=== PATIENT | male | born 1990 | race Caucasian/White ===

== ENCOUNTER 2018-10-20 18:06 | Observation (INO) | payer MEDICAID, OTHER ==
[2018-10-20] MEDS ORDERED: Sodium Chloride 0.9% 1,000 ML IV SCH (20:00)
[2018-10-20] MEDS ORDERED: metroNIDAZOLE/Normal Saline 500 MG in Premix Bag 1 BAG IV ONE (20:31)
[2018-10-20] MEDS ORDERED: cefOXitin 2 GM in Premix Bag 1 BAG IV ONE (20:32)
--- NOTE | 2018-10-20 20:36 | EDM.PDOC ---
ED HPI GENERAL MEDICAL PROBLEM - General Chief Complaint: Abdominal Pain Stated Complaint: RT LOWER ABD PAIN SENT BY JOSHUA Time Seen by Provider: 10/20/18 19:20 Source of Information: Reports: Patient, Family History Limitations: Reports: No Limitations - History of Present Illness INITIAL COMMENTS - FREE TEXT/NARRATIVE: This is a 28-year-old male. Yesterday he was having some generalized abdominal pain periumbilical area. Today the pain seemed to move into the right lower quadrant. He denies any fever. He's had some nausea but no vomiting. He had some diarrhea yesterday but no blood. The stool is harder today. States he's had a recent cough the last 3 or 4 days like a bronchitis with some phlegm and also some sinus congestion. He went to the walk-in clinic and they did a white count on him of that was 17 and so they sent him to the ER for evaluation for possible appendicitis. The patient appears to be fairly comfortable laying in bed but he did state that on his drive to the walk-in clinic and to the hospital the bumps in the road would make him hurt. Right Lower Abdomen Pain Score (Numeric/FACES): 7 - Related Data Allergies Allergy/AdvReac Type Severity Reaction Status Date / Time almond Allergy Severe Anaphylactic Verified 10/20/18 23:33 Shock Home Meds: Home Meds . [No Known Home Meds] 10/20/18 [History] Past Medical History - Past Health History Medical/Surgical History: Denies Medical/Surgical History Social & Family History - Tobacco Use Smoking Status *Q: Never Smoker - Caffeine Use Caffeine Use: Reports: Coffee, Energy Drinks, Soda, Tea - Recreational Drug Use Recreational Drug Type: Reports: Marijuana/Hashish Other Recreational Drug Type: marijuana today ED ROS GENERAL - Review of Systems Review Of Systems: See Below Constitutional: Denies: Fever, Chills HEENT: Reports: Rhinitis Respiratory: Reports: Cough, Sputum Cardiovascular: Reports: No Symptoms Endocrine: Reports: No Symptoms GI/Abdominal: Reports: Abdominal Pain, Diarrhea, Nausea. Denies: Vomiting : Reports: No Symptoms Musculoskeletal: Reports: No Symptoms Skin: Reports: No Symptoms Neurological: Reports: No Symptoms Psychiatric: Reports: No Symptoms Hematologic/Lymphatic: Reports: No Symptoms ED EXAM, GI/ABD - Physical Exam Exam: See Below Exam Limited By: No Limitations General Appearance: Alert, WD/WN, No Apparent Distress Eyes: Bilateral: Normal Appearance Ears: Normal External Exam Nose: Normal Inspection Throat/Mouth: Normal Inspection, Normal Lips, Normal Voice, No Airway Compromise Head: Normocephalic Neck: Supple Respiratory/Chest: No Respiratory Distress, Lungs Clear, Normal Breath Sounds Cardiovascular: Regular Rate, Rhythm, No Murmur GI/Abdominal Exam: Soft, No Distention, Other (The patient has tenderness over McBurney's point in the right lower quadrant, minimal rebound or peritoneal signs but very tender. Bowel sounds are decreased if not absent) Back Exam: Normal Inspection, Full Range of Motion Extremities: Normal Inspection, Normal Range of Motion Neurological: Alert, Oriented Psychiatric: Normal Affect, Normal Mood Skin Exam: Warm, Dry Course - Vital Signs Last Recorded V/S: Last Vital Signs Temp 98.3 F 10/20/18 23:45 Pulse 62 10/21/18 05:17 Resp 9 L 10/21/18 00:02 BP 125/68 10/21/18 05:17 Pulse Ox 95 10/21/18 05:17 - Orders/Labs/Meds Orders: Active Orders 24 hr Category Date Time Status Patient Status [ADT] Stat ADT 10/20/18 23:13 Active Ambulate [RC] ASDIRECTED Care 10/20/18 23:18 Active Cooling Warming Measures [RC] ASDIRECTED Care 10/20/18 22:17 Active Notify Provider [RC] ASDIRECTED Care 10/20/18 22:17 Active Oxygen Therapy [RC] ASDIRECTED Care 10/20/18 22:17 Active Pulse Oximetry [RC] ASDIRECTED Care 10/20/18 22:17 Active Turn, Cough, Deep Breathe [RC] .PRN Care 10/20/18 23:18 Active Verify Patient Consent Obtain [RC] ASDIRECTED Care 10/20/18 20:58 Active Vital Signs [RC] Q15M Care 10/20/18 22:17 Active Clear Liquid Diet [DIET] Diet 10/21/18 Breakfast Active Abdomen Pelvis wo Cont [CT] Stat Exams 10/20/18 19:47 Taken Acetaminophen/HYDROcodone [Cascade 325-5 MG] Med 10/20/18 23:17 Active 1 tab PO Q6H PRN Albuterol [Proventil Neb Soln] Med 10/20/18 22:17 Active 2.5 mg NEB ONETIME PRN HYDROmorphone [Dilaudid] Med 10/20/18 22:17 Active 0.5 mg IVPUSH Q15M PRN HYDROmorphone [Dilaudid] Med 10/20/18 23:16 Active 1 mg IVPUSH Q1H PRN Ketorolac [Toradol] Med 10/21/18 03:30 Active 30 mg IVPUSH Q6H PRN Lactated Ringers [Ringers, Lactated] 1,000 ml Med 10/20/18 23:30 Active IV ASDIRECTED Ondansetron [Zofran] Med 10/20/18 22:17 Active 4 mg IVPUSH ONETIME PRN Phenylephrine [Dimitri-Synephrine] 1 mg Med 10/20/18 22:30 Active Sodium Chloride 0.9% [Normal Saline] 10 ml IV TITRATE cefOXitin [Mefoxin in Dextrose,Iso-Osm 2 GM/50 ML] 2 gm Med 10/21/18 03:00 Active Premix Bag 1 bag IV Q6H diphenhydrAMINE [Benadryl] Med 10/20/18 22:17 Active 25 mg IVPUSH Q6H PRN ePHEDrine [ePHEDrine sulfate] Med 10/20/18 22:17 Active 5 mg IVPUSH ASDIRECTED PRN fentaNYL [Sublimaze] Med 10/20/18 22:17 Active 50 mcg IVPUSH Q5M PRN metroNIDAZOLE/Normal Saline [Flagyl 500 MG in NS 100 ML Med 10/21/18 05:00 Active ] 500 mg Premix Bag 1 bag IV Q8H Schedule Procedure [COMM] Stat Oth 10/20/18 20:49 Ordered Medication Orders Hydrocodone Bitart/Acetaminophen (Cascade 325-5 Mg) 1 tab PO Q6H PRN PRN Reason: Pain Albuterol (Proventil Neb Soln) 2.5 mg NEB ONETIME PRN PRN Reason: Cough Albuterol (Proventil Neb Soln) 2.5 mg NEB Q6HR PRN PRN Reason: Cough Diphenhydramine HCl (Benadryl) 25 mg IVPUSH Q6H PRN PRN Reason: pruritis Ephedrine Sulfate (Ephedrine Sulfate) 5 mg IVPUSH ASDIRECTED PRN PRN Reason: Hypotension Fentanyl (Sublimaze) 50 mcg IVPUSH Q5M PRN PRN Reason: Pain Hydromorphone HCl (Dilaudid) 0.5 mg IVPUSH Q15M PRN PRN Reason: Pain (severe 7-10) Hydromorphone HCl (Dilaudid) 1 mg IVPUSH Q1H PRN PRN Reason: Pain Phenylephrine HCl 1 mg/ Sodium (Chloride) 10.1 mls @ 1 mls/sec IV TITRATE [facility]; Protocol Cefoxitin Sodium 2 gm/ Premix 50 mls @ 100 mls/hr IV Q6H [facility] Last Admin: 10/21/18 02:53 Dose: 100 mls/hr Lactated Ringer's (Ringers, Lactated) 1,000 mls @ 100 mls/hr IV ASDIRECTED [facility] Last Admin: 10/21/18 01:36 Dose: 100 mls/hr Metronidazole 500 mg/ Premix 100 mls @ 100 mls/hr IV Q8H [facility] Last Admin: 10/21/18 04:24 Dose: 100 mls/hr Ketorolac Tromethamine (Toradol) 30 mg IVPUSH Q6H PRN PRN Reason: Pain Stop: 10/25/18 03:31 Ondansetron HCl (Zofran) 4 mg IVPUSH ONETIME PRN PRN Reason: Nausea/Vomiting Labs: Laboratory Tests 10/20/18 10/20/18 Range/Units 19:52 19:52 WBC 15.27 H (4.23-9.07) K/mm3 RBC 5.27 (4.63-6.08) M/mm3 Hgb 15.4 (13.7-17.5) gm/L Hct 44.4 (40.1-51.0) % MCV 84.3 (79.0-92.2) fl MCH 29.2 (25.7-32.2) pg MCHC 34.7 (32.2-35.5) g/dl RDW Std Deviation 42.8 (35.1-43.9) fL Plt Count 211 (163-337) K/mm3 MPV 9.9 (9.4-12.3) fl Neut % (Auto) 76.3 H (34.0-67.9) % Lymph % (Auto) 13.2 L (21.8-53.1) % [place] % (Auto) 10.2 (5.3-12.2) % Eos % (Auto) 0.1 L (0.8-7.0) Baso % (Auto) 0.1 (0.1-1.2) % Neut # (Auto) 11.66 H (1.78-5.38) K/mm3 Lymph # (Auto) 2.01 (1.32-3.57) K/mm3 [place] # (Auto) 1.55 H (0.30-0.82) K/mm3 Eos # (Auto) 0.02 L (0.04-0.54) K/mm3 Baso # (Auto) 0.01 (0.01-0.08) K/mm3 Manual Slide Review Normal smear Sodium 142 (136-145) mEq/L Potassium 3.6 (3.5-5.1) mEq/L Chloride 103 (98-107) mEq/L Carbon Dioxide 24 (21-32) mEq/L Anion Gap 18.6 H (5-15) BUN 13 (7-18) mg/dL Creatinine 1.2 (0.7-1.3) mg/dL Est Cr Clr Drug Dosing 110.51 mL/min Estimated GFR (MDRD) > 60 (>60) mL/min BUN/Creatinine Ratio 10.8 L (14-18) Glucose 112 H (74-106) mg/dL Calcium 9.6 (8.5-10.1) mg/dL Total Bilirubin 0.8 (0.2-1.0) mg/dL AST 20 (15-37) U/L ALT 34 (16-63) U/L Alkaline Phosphatase 62 (46-116) U/L C-Reactive Protein 9.5 H* (<1.0) mg/dL Total Protein 8.9 H (6.4-8.2) g/dl Albumin 3.9 (3.4-5.0) g/dl Globulin 5.0 gm/dL Albumin/Globulin Ratio 0.8 L (1-2) Meds: Medications Generic Name Dose Route Start Last Admin Trade Name Freq PRN Reason Stop Dose Admin Hydrocodone Bitart/Acetaminophen 1 tab 10/20/18 23:17 Cascade 325-5 Mg PO Q6H PRN Pain Albuterol 2.5 mg 10/20/18 22:17 Proventil Neb Soln NEB ONETIME PRN Cough Albuterol 2.5 mg 10/20/18 23:32 Proventil Neb Soln NEB Q6HR PRN Cough Diphenhydramine HCl 25 mg 10/20/18 22:17 Benadryl IVPUSH Q6H PRN pruritis Ephedrine Sulfate 5 mg 10/20/18 22:17 Ephedrine Sulfate IVPUSH ASDIRECTED PRN Hypotension Fentanyl 50 mcg 10/20/18 22:17 Sublimaze IVPUSH Q5M PRN Pain Hydromorphone HCl 0.5 mg 10/20/18 22:17 Dilaudid IVPUSH Q15M PRN Pain (severe 7-10) Hydromorphone HCl 1 mg 10/20/18 23:16 Dilaudid IVPUSH Q1H PRN Pain Phenylephrine HCl 1 mg/ Sodium 10.1 mls @ 1 mls/sec 10/20/18 22:30 Chloride IV TITRATE [facility] Protocol Cefoxitin Sodium 2 gm/ Premix 50 mls @ 100 mls/hr 10/21/18 03:00 10/21/18 02: 53 IV 100 mls/hr Q6H [facility] Administration Lactated Ringer's 1,000 mls @ 100 mls/hr 10/20/18 23:30 10/21/18 01:36 Ringers, Lactated IV 100 mls/hr ASDIRECTED [facility] Administration Metronidazole 500 mg/ Premix 100 mls @ 100 mls/hr 10/21/18 05:00 10/21/18 04: 24 IV 100 mls/hr Q8H [facility] Administration Ketorolac Tromethamine 30 mg 10/21/18 03:30 Toradol IVPUSH 10/25/18 03:31 Q6H PRN Pain Ondansetron HCl 4 mg 10/20/18 22:17 Zofran IVPUSH ONETIME PRN Nausea/Vomiting Discontinued Medications Generic Name Dose Route Start Last Admin Trade Name Freq PRN Reason Stop Dose Admin Albuterol 2.5 mg 10/20/18 21:27 10/20/18 21:42 Proventil Neb Soln NEB 10/20/18 21:28 2.5 mg ONETIME ONE Administration Albuterol 2.5 mg 10/20/18 21:27 10/20/18 21:45 Proventil Neb Soln NEB 10/20/18 21:28 Not Given ONETIME ONE Bupivacaine HCl Confirm 10/20/18 21:04 10/20/18 22:16 Marcaine 0.5% Administered 10/20/18 21:05 10.5 ml Dose Administration 30 ml .ROUTE .STK-MED ONE Dexamethasone Confirm 10/20/18 21:18 Dexamethasone Administered 10/20/18 21:19 Dose 20 mg .ROUTE .STK-MED ONE Fentanyl Confirm 10/20/18 21:19 Sublimaze Administered 10/20/18 21:20 Dose 250 mcg .ROUTE .STK-MED ONE Fentanyl Confirm 10/20/18 22:55 Sublimaze Administered 10/20/18 22:56 Dose 100 mcg .ROUTE .STK-MED ONE Glycopyrrolate Confirm 10/20/18 22:22 Administered 10/20/18 22:23 Dose 1 mg .ROUTE .STK-MED ONE Hydromorphone HCl Confirm 10/20/18 21:18 Dilaudid Administered 10/20/18 21:19 Dose 0.5 mg .ROUTE .STK-MED ONE Hydromorphone HCl Confirm 10/20/18 22:54 Dilaudid Administered 10/20/18 22:55 Dose 0.5 mg .ROUTE .STK-MED ONE Sodium Chloride 1,000 mls @ 125 mls/hr 10/20/18 20:00 10/20/18 20:07 Normal Saline IV 125 mls/hr ASDIRECTED [facility] Administration Metronidazole 500 mg/ Premix 100 mls @ 100 mls/hr 10/20/18 20:31 10/20/18 21: 16 IV 10/20/18 21:30 100 mls/hr ONETIME ONE Administration Cefoxitin Sodium 2 gm/ Premix 50 mls @ 100 mls/hr 10/20/18 20:32 10/20/18 20: 40 IV 10/20/18 21:01 100 mls/hr ONETIME ONE Administration Lactated Ringer's Confirm 10/20/18 21:18 Ringers, Lactated Administered 10/20/18 21:19 Dose 1,000 mls @ as directed .ROUTE .STK-MED ONE Lactated Ringer's Confirm 10/20/18 21:20 Ringers, Lactated Administered 10/20/18 21:21 Dose 1,000 mls @ as directed .ROUTE .STK-MED ONE Ketorolac Tromethamine Confirm 10/20/18 21:18 Toradol Administered 10/20/18 21:19 Dose 30 mg .ROUTE .STK-MED ONE Lidocaine HCl Confirm 10/20/18 21:18 Xylocaine-Mpf 1% Administered 10/20/18 21:19 Dose 6 ml .ROUTE .STK-MED ONE Midazolam HCl Confirm 10/20/18 21:19 Versed 1 Mg/Ml Administered 10/20/18 21:20 Dose 2 mg .ROUTE .STK-MED ONE Neostigmine Methylsulfate Confirm 10/20/18 22:22 Neostigmine Administered 10/20/18 22:23 Dose 5 mg .ROUTE .STK-MED ONE Ondansetron HCl Confirm 10/20/18 21:18 Zofran Administered 10/20/18 21:19 Dose 4 mg .ROUTE .STK-MED ONE Propofol Confirm 10/20/18 21:18 Diprivan 20 Ml Administered 10/20/18 21:19 Dose 200 mg .ROUTE .STK-MED ONE Propofol Confirm 10/20/18 21:59 Diprivan 20 Ml Administered 10/20/18 22:00 Dose 200 mg .ROUTE .STK-MED ONE Rocuronium Shevlin Confirm 10/20/18 21:18 Zemuron Administered 10/20/18 21:19 Dose 50 mg .ROUTE .STK-MED ONE Succinylcholine Chloride Confirm 10/20/18 21:18 Succinylcholine In Ns Pf Administered 10/20/18 21:19 Dose 100 mg .ROUTE .STK-MED ONE - Radiology Interpretation Free Text/Narrative:: CT scan of the abdomen shows a uncomplicated acute appendicitis with no abscess and no perforation. - Re-Assessments/Exams Free Text/Narrative Re-Assessment/Exam: 10/21/18 20:12 I spoke to the patient regarding his white count of 15,000 and his positive CAT scan for acute appendicitis. He last ate last night but his last fluid intake was about 4 PM today. 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 Departure - Departure Time of Disposition: 20:34 Disposition: DC/Tfer to [facility] Condition: Fair Clinical Impression: Acute appendicitis Qualifiers: Acute appendicitis type: with localized peritonitis Appendicitis gangrene presence: without gangrene Appendicitis perforation presence: without perforation Appendicitis abscess presence: without abscess Qualified Code(s): K35.30 - Acute appendicitis with localized peritonitis, without perforation or gangrene - Discharge Information ED Communication - ED Communication Date/Time Date: 10/20/18 Time Called: 20:36 - Discussed Case With (1) Discussed Case With (1): Admitting Provider Person/s Notified (1): Konstantin Yanez (He will see the patient in the ER) - My Orders Last 24 Hours: My Active Orders 10/20/18 19:47 Abdomen Pelvis wo Cont [CT] Stat - Assessment/Plan Last 24 Hours: My Active Orders 10/20/18 19:47 Abdomen Pelvis wo Cont [CT] Stat
[2018-10-20] MEDS ORDERED: Bupivacaine 0.5% 30 ML SDV ONE (21:04)
--- NOTE | 2018-10-20 21:06 | PCM.PREANE ---
Preanesthetic Assessment - Anesthesia/Transfusion/Family Hx Anesthesia History: No Prior Anesthesia Family History of Anesthesia Reaction: No Transfusion History: No Prior Transfusion(s) Intubation History: Unknown - Review of Systems General: No Symptoms (Cold symptoms) Pulmonary: No Symptoms (Marijuana noted today), Cough Cardiovascular: No Symptoms Gastrointestinal: No Symptoms, Abdominal Pain, Constipation, Diarrhea Neurological: No Symptoms (Lower back and feet problems noted per patient) Other: Reports: Anxiety - Physical Assessment NPO Status Date: 10/19/18 NPO Status Time: 18:00 Pulse: 79 O2 Sat by Pulse Oximetry: 95 Respiratory Rate: 20 Blood Pressure: 153/92 Temperature: 36.6 C Vital Signs: Last Vital Signs Temp 36.6 C 10/20/18 19:12 Pulse 79 10/20/18 19:12 Resp 20 10/20/18 19:12 BP 153/92 H 10/20/18 19:12 Pulse Ox 95 10/20/18 19:12 Height: 1.93 m Weight: 108.862 kg ASA Class: 2 Mental Status: Alert & Oriented x3 Airway Class: Mallampati = 2 Dentition: Reports: Normal Dentition, Caries Thyro-Mental Finger Breadths: 3 Mouth Opening Finger Breadths: 3 ROM/Head Extension: Full Lungs: Clear to Auscultation, Normal Respiratory Effort, Wheezing Cardiovascular: Regular Rate, Regular Rhythm, No Murmurs - Lab Values: Laboratory Last Values WBC 15.27 K/mm3 (4.23-9.07) H 10/20/18 19:52 RBC 5.27 M/mm3 (4.63-6.08) 10/20/18 19:52 Hgb 15.4 gm/L (13.7-17.5) 10/20/18 19:52 Hct 44.4 % (40.1-51.0) 10/20/18 19:52 MCV 84.3 fl (79.0-92.2) 10/20/18 19:52 MCH 29.2 pg (25.7-32.2) 10/20/18 19:52 MCHC 34.7 g/dl (32.2-35.5) 10/20/18 19:52 RDW Std Deviation 42.8 fL (35.1-43.9) 10/20/18 19:52 Plt Count 211 K/mm3 (163-337) 10/20/18 19:52 MPV 9.9 fl (9.4-12.3) 10/20/18 19:52 Neut % (Auto) 76.3 % (34.0-67.9) H 10/20/18 19:52 Lymph % (Auto) 13.2 % (21.8-53.1) L 10/20/18 19:52 [place] % (Auto) 10.2 % (5.3-12.2) 10/20/18 19:52 Eos % (Auto) 0.1 (0.8-7.0) L 10/20/18 19:52 Baso % (Auto) 0.1 % (0.1-1.2) 10/20/18 19:52 Neut # (Auto) 11.66 K/mm3 (1.78-5.38) H 10/20/18 19:52 Lymph # (Auto) 2.01 K/mm3 (1.32-3.57) 10/20/18 19:52 [place] # (Auto) 1.55 K/mm3 (0.30-0.82) H 10/20/18 19:52 Eos # (Auto) 0.02 K/mm3 (0.04-0.54) L 10/20/18 19:52 Baso # (Auto) 0.01 K/mm3 (0.01-0.08) 10/20/18 19:52 Manual Slide Review Normal smear 10/20/18 19:52 Labs reviewed and noted and within acceptable ranges to proceed with scheduled procedure. - Allergies Allergies/Adverse Reactions: Allergies Allergy/AdvReac Type Severity Reaction Status Date / Time No Known Allergies Allergy Verified 10/20/18 19:09 - Anesthesia Plan Pre-Op Medication Ordered: None - Acknowledgements Anesthesia Type Planned: General Anesthesia Pt an Appropriate Candidate for the Planned Anesthesia: Yes Alternatives and Risks of Anesthesia Discussed w Pt/Guardian: Yes Pt/Guardian Understands and Agrees with Anesthesia Plan: Yes PreAnesthesia Questionnaire - Past Health History Medical/Surgical History: Denies Medical/Surgical History - SUBSTANCE USE Smoking Status *Q: Never Smoker Recreational Drug Type: Reports: Marijuana/Hashish - HOME MEDS Home Medications: Home Meds . [No Known Home Meds] 10/20/18 [History] - CURRENT (IN HOUSE) MEDS Current Meds: Current Medications Sodium Chloride (Normal Saline) 1,000 mls @ 125 mls/hr IV ASDIRECTED [facility] Last Admin: 10/20/18 20:07 Dose: 125 mls/hr Metronidazole 500 mg/ Premix 100 mls @ 100 mls/hr IV ONETIME ONE Stop: 10/20/18 21:30 Discontinued Medications Cefoxitin Sodium 2 gm/ Premix 50 mls @ 100 mls/hr IV ONETIME ONE Stop: 10/20/18 21:01 Last Admin: 10/20/18 20:40 Dose: 100 mls/hr
[2018-10-20] MEDS ORDERED: Succinylcholine/Normal Saline 100 MG/5 ML Syringe ONE (21:18)
[2018-10-20] MEDS ORDERED: Dexamethasone 4 MG/ML 5 ML MDV ONE (21:18)
[2018-10-20] MEDS ORDERED: Lidocaine 1% PF 2 ML SDV ONE (21:18)
[2018-10-20] MEDS ORDERED: Ketorolac 30 MG/ML SDV ONE (21:18)
[2018-10-20] MEDS ORDERED: Ondansetron 4 MG/2 ML SDV ONE (21:18)
[2018-10-20] MEDS ORDERED: Lactated Ringers 1,000 ML ONE ×2 (21:18→21:20)
[2018-10-20] MEDS ORDERED: HYDROmorphone 0.5 MG/0.5 ML Syringe ONE ×2 (21:18→22:54)
[2018-10-20] MEDS ORDERED: Rocuronium 50 MG/5 ML Vial ONE (21:18)
[2018-10-20] MEDS ORDERED: Propofol 200 MG/20 ML SDV ONE ×2 (21:18→21:59)
[2018-10-20] MEDS ORDERED: Midazolam 1 MG/ML 2 ML SDV ONE (21:19)
[2018-10-20] MEDS ORDERED: fentaNYL 250 MCG/5 ML SDV ONE (21:19)
[2018-10-20] MEDS ORDERED: Albuterol 0.083% 2.5 MG/3 ML Neb Soln NEB ONE ×2 (21:27)
[2018-10-20] MEDS ORDERED: fentaNYL 100 MCG/2 ML SDV IVPUSH PRN (22:17)
[2018-10-20] MEDS ORDERED: diphenhydrAMINE 50 MG/ML SDV IVPUSH PRN (22:17)
[2018-10-20] MEDS ORDERED: ePHEDrine 50 MG/ML SDV IVPUSH PRN (22:17)
[2018-10-20] MEDS ORDERED: Albuterol 0.083% 2.5 MG/3 ML Neb Soln NEB PRN ×2 (22:17→23:32)
[2018-10-20] MEDS ORDERED: Ondansetron 4 MG/2 ML SDV IVPUSH PRN (22:17)
[2018-10-20] MEDS ORDERED: HYDROmorphone 0.5 MG/0.5 ML Syringe IVPUSH PRN (22:17)
[2018-10-20] MEDS ORDERED: Neostigmine Methylsulfate 1 MG/ML 5 ML Syringe ONE (22:22)
[2018-10-20] MEDS ORDERED: Phenylephrine 1 MG in Sodium Chloride 0.9% 10 ML IV SCH (22:30)
[2018-10-20] MEDS ORDERED: fentaNYL 100 MCG/2 ML SDV ONE (22:55)
[2018-10-20] MEDS ORDERED: HYDROmorphone 1 MG/ML Syringe IVPUSH PRN (23:16)
[2018-10-20] MEDS ORDERED: Acetaminophen/HYDROcodone 325-5 MG Tab PO PRN (23:17)
--- NOTE | 2018-10-20 23:21 | PCM.OPNOTE ---
- General Post-Op/Procedure Note Date of Surgery/Procedure: 10/20/18 Operative Procedure(s): lap appy Pre Op Diagnosis: acute appendicitis Post-Op Diagnosis: Same Anesthesia Technique: General ET Tube Primary Surgeon: Konstantin Yanez EBL in mLs: 5 Complications: None Condition: Good
--- NOTE | 2018-10-20 23:25 | PCM.POSTAN ---
POST ANESTHESIA ASSESSMENT - MENTAL STATUS Mental Status: Alert - VITAL SIGNS Pulse Rate: 118 SaO2: 92 (2LPM nasal cannula) Resp Rate: 20 Blood Pressure: 138/87 Temperature: 37.1 C - RESPIRATORY Respiratory Status: Respiratory Rate WNL, Airway Patent, O2 Saturation Stable, Supplemental Oxygen - CARDIOVASCULAR CV Status: Pulse Rate WNL, Blood Pressure Stable - GASTROINTESTINAL GI Status: No Symptoms - POST OP HYDRATION Hydration Status: Adequate & Stable
[2018-10-20] MEDS ORDERED: Lactated Ringers 1,000 ML IV SCH (23:30)
[2018-10-21] MEDS: cefOXitin 2 GM in Premix Bag 1 BAG IV SCH ×2 (02:53→08:30)
--- NOTE | 2018-10-21 02:55 | OR ---
DATE OF OPERATION: 10/20/2018 SURGEON: Konstantin Yanez MD PREOPERATIVE DIAGNOSIS: Acute appendicitis. POSTOPERATIVE DIAGNOSIS: Acute appendicitis. OPERATION PERFORMED: Laparoscopic appendectomy done under general anesthetic. FINDINGS: Acutely inflamed appendix with a large amount of periappendiceal reaction. ANESTHESIA: Done under general anesthetic. ESTIMATED BLOOD LOSS: About 5 mL. DESCRIPTION OF PROCEDURE: The patient was taken to the operating room, placed in a supine position, given a general anesthetic and intubated. The abdomen was clipped and prepped with chlorhexidine alcohol prep and antibiotics were given. A 1% Xylocaine and Marcaine mixture in half and half was then infiltrated and just below the umbilicus, an incision was made and carried down by sharp dissection to the fascia, this was incised. Marko trocar was inserted in abdominal cavity and secured in its place by stay sutures. The pneumoperitoneum was established. A 5-mm 30-degree camera was inserted showing the appendix with a lot of reaction around adhering the appendix to the lateral abdominal wall. A 5 mm trocar placed in the right upper quadrant and 1 in right lower quadrant and the appendix was then mobilized from its attachment to the lateral abdominal wall and the posterior attachments were then incised, mobilizing the appendix. The mesoappendix window was then placed at the base of the cecum and Ethicon Endo- ligator was inserted through this window and fired the appendix from the cecum and another firing the Endo-ligator the mesoappendix and the appendix. The appendix was then placed in an Endobag and removed from the abdominal cavity. Pneumoperitoneum was removed then re-established. The area was irrigated showing excellent hemostasis. Both the subhepatic space and subdiaphragmatic space on the right and the pelvis were sucked free and the appendicular stump and mesoappendix were quite secured. This completed the intraabdominal portion of the procedure. The ports were removed and the fascia of the subumbilical port was closed with a running 0 Vicryl suture and the skin of each port closed with subdermal 4-0 Dexon suture. Steri-Strips and sterile dressing placed. The patient tolerated the procedure and sent to recovery room in a stable condition. MMBALDOMERO /[id number]
[2018-10-21] MEDS ORDERED: Ketorolac 30 MG/ML SDV IVPUSH PRN (03:30)
[2018-10-21] MEDS: metroNIDAZOLE/Normal Saline 500 MG in Premix Bag 1 BAG IV SCH ×2 (04:24→12:29)
--- NOTE | 2018-10-21 12:52 | PCM.SURGPN ---
- General Info Date of Service: 10/21/18 - Patient Data Vitals - Most Recent: Last Vital Signs Temp 97.9 F 10/21/18 12:33 Pulse 59 L 10/21/18 12:33 Resp 14 10/21/18 12:33 BP 140/75 10/21/18 12:33 Pulse Ox 94 L 10/21/18 12:33 Weight - Most Recent: 110.586 kg I&O - Last 24 Hours: Intake & Output 10/20/18 10/21/18 10/21/18 23:59 07:59 15:59 Intake Total 200 540 Output Total 0 Balance 200 540 Lab Results Last 24 Hrs: Laboratory Results - last 24 hr 10/20/18 10/20/18 Range/Units 19:52 19:52 WBC 15.27 H (4.23-9.07) K/mm3 RBC 5.27 (4.63-6.08) M/mm3 Hgb 15.4 (13.7-17.5) gm/L Hct 44.4 (40.1-51.0) % MCV 84.3 (79.0-92.2) fl MCH 29.2 (25.7-32.2) pg MCHC 34.7 (32.2-35.5) g/dl RDW Std Deviation 42.8 (35.1-43.9) fL Plt Count 211 (163-337) K/mm3 MPV 9.9 (9.4-12.3) fl Neut % (Auto) 76.3 H (34.0-67.9) % Lymph % (Auto) 13.2 L (21.8-53.1) % [place] % (Auto) 10.2 (5.3-12.2) % Eos % (Auto) 0.1 L (0.8-7.0) Baso % (Auto) 0.1 (0.1-1.2) % Neut # (Auto) 11.66 H (1.78-5.38) K/mm3 Lymph # (Auto) 2.01 (1.32-3.57) K/mm3 [place] # (Auto) 1.55 H (0.30-0.82) K/mm3 Eos # (Auto) 0.02 L (0.04-0.54) K/mm3 Baso # (Auto) 0.01 (0.01-0.08) K/mm3 Manual Slide Review Normal smear Sodium 142 (136-145) mEq/L Potassium 3.6 (3.5-5.1) mEq/L Chloride 103 (98-107) mEq/L Carbon Dioxide 24 (21-32) mEq/L Anion Gap 18.6 H (5-15) BUN 13 (7-18) mg/dL Creatinine 1.2 (0.7-1.3) mg/dL Est Cr Clr Drug Dosing 110.51 mL/min Estimated GFR (MDRD) > 60 (>60) mL/min BUN/Creatinine Ratio 10.8 L (14-18) Glucose 112 H (74-106) mg/dL Calcium 9.6 (8.5-10.1) mg/dL Total Bilirubin 0.8 (0.2-1.0) mg/dL AST 20 (15-37) U/L ALT 34 (16-63) U/L Alkaline Phosphatase 62 (46-116) U/L C-Reactive Protein 9.5 H* (<1.0) mg/dL Total Protein 8.9 H (6.4-8.2) g/dl Albumin 3.9 (3.4-5.0) g/dl Globulin 5.0 gm/dL Albumin/Globulin Ratio 0.8 L (1-2) Med Orders - Current: Current Medications Hydrocodone Bitart/Acetaminophen ([place] 325-5 Mg) 1 tab PO Q6H PRN PRN Reason: Pain Last Admin: 10/21/18 08:25 Dose: 1 tab Albuterol (Proventil Neb Soln) 2.5 mg NEB Q6HR PRN PRN Reason: Cough Hydromorphone HCl (Dilaudid) 1 mg IVPUSH Q1H PRN PRN Reason: Pain Cefoxitin Sodium 2 gm/ Premix 50 mls @ 100 mls/hr IV Q6H [facility] Last Admin: 10/21/18 08:30 Dose: 100 mls/hr Lactated Ringer's (Ringers, Lactated) 1,000 mls @ 100 mls/hr IV ASDIRECTED [facility] Last Admin: 10/21/18 01:36 Dose: 100 mls/hr Metronidazole 500 mg/ Premix 100 mls @ 100 mls/hr IV Q8H [facility] Last Admin: 10/21/18 12:29 Dose: 100 mls/hr Ketorolac Tromethamine (Toradol) 30 mg IVPUSH Q6H PRN PRN Reason: Pain Stop: 10/25/18 03:31 Discontinued Medications Albuterol (Proventil Neb Soln) 2.5 mg NEB ONETIME ONE Stop: 10/20/18 21:28 Last Admin: 10/20/18 21:42 Dose: 2.5 mg Albuterol (Proventil Neb Soln) 2.5 mg NEB ONETIME ONE Stop: 10/20/18 21:28 Last Admin: 10/20/18 21:45 Dose: Not Given Albuterol (Proventil Neb Soln) 2.5 mg NEB ONETIME PRN PRN Reason: Cough Bupivacaine HCl (Marcaine 0.5%) Confirm Administered Dose 30 ml .ROUTE .STK-MED ONE Stop: 10/20/18 21:05 Last Admin: 10/20/18 22:16 Dose: 10.5 ml Dexamethasone (Dexamethasone) Confirm Administered Dose 20 mg .ROUTE .STK-MED ONE Stop: 10/20/18 21:19 Diphenhydramine HCl (Benadryl) 25 mg IVPUSH Q6H PRN PRN Reason: pruritis Ephedrine Sulfate (Ephedrine Sulfate) 5 mg IVPUSH ASDIRECTED PRN PRN Reason: Hypotension Fentanyl (Sublimaze) Confirm Administered Dose 250 mcg .ROUTE .STK-MED ONE Stop: 10/20/18 21:20 Fentanyl (Sublimaze) 50 mcg IVPUSH Q5M PRN PRN Reason: Pain Fentanyl (Sublimaze) Confirm Administered Dose 100 mcg .ROUTE .STK-MED ONE Stop: 10/20/18 22:56 Glycopyrrolate () Confirm Administered Dose 1 mg .ROUTE .STK-MED ONE Stop: 10/20/18 22:23 Hydromorphone HCl (Dilaudid) Confirm Administered Dose 0.5 mg .ROUTE .STK-MED ONE Stop: 10/20/18 21:19 Hydromorphone HCl (Dilaudid) 0.5 mg IVPUSH Q15M PRN PRN Reason: Pain (severe 7-10) Hydromorphone HCl (Dilaudid) Confirm Administered Dose 0.5 mg .ROUTE .STK-MED ONE Stop: 10/20/18 22:55 Sodium Chloride (Normal Saline) 1,000 mls @ 125 mls/hr IV ASDIRECTED [facility] Last Admin: 10/20/18 20:07 Dose: 125 mls/hr Metronidazole 500 mg/ Premix 100 mls @ 100 mls/hr IV ONETIME ONE Stop: 10/20/18 21:30 Last Admin: 10/20/18 21:16 Dose: 100 mls/hr Cefoxitin Sodium 2 gm/ Premix 50 mls @ 100 mls/hr IV ONETIME ONE Stop: 10/20/18 21:01 Last Admin: 10/20/18 20:40 Dose: 100 mls/hr Lactated Ringer's (Ringers, Lactated) Confirm Administered Dose 1,000 mls @ as directed .ROUTE .STK-MED ONE Stop: 10/20/18 21:19 Lactated Ringer's (Ringers, Lactated) Confirm Administered Dose 1,000 mls @ as directed .ROUTE .STK-MED ONE Stop: 10/20/18 21:21 Phenylephrine HCl 1 mg/ Sodium (Chloride) 10.1 mls @ 1 mls/sec IV TITRATE [facility]; Protocol Influenza Virus Vaccine (Pharmacy To Dose - Influenza Vaccine) 1 each IM ONETIME ONE Stop: 10/21/18 08:55 Influenza Virus Vaccine (Fluzone Quad [id number] Syringe) 60 mcg IM .ONCE ONE Stop: 10/21/18 11:01 Ketorolac Tromethamine (Toradol) Confirm Administered Dose 30 mg .ROUTE .STK- MED ONE Stop: 10/20/18 21:19 Lidocaine HCl (Xylocaine-Mpf 1%) Confirm Administered Dose 6 ml .ROUTE .STK-MED ONE Stop: 10/20/18 21:19 Midazolam HCl (Versed 1 Mg/Ml) Confirm Administered Dose 2 mg .ROUTE .STK-MED ONE Stop: 10/20/18 21:20 Neostigmine Methylsulfate (Neostigmine) Confirm Administered Dose 5 mg .ROUTE .STK-MED ONE Stop: 10/20/18 22:23 Ondansetron HCl (Zofran) Confirm Administered Dose 4 mg .ROUTE .STK-MED ONE Stop: 10/20/18 21:19 Ondansetron HCl (Zofran) 4 mg IVPUSH ONETIME PRN PRN Reason: Nausea/Vomiting Propofol (Diprivan 20 Ml) Confirm Administered Dose 200 mg .ROUTE .STK-MED ONE Stop: 10/20/18 21:19 Propofol (Diprivan 20 Ml) Confirm Administered Dose 200 mg .ROUTE .STK-MED ONE Stop: 10/20/18 22:00 Rocuronium [place] (Zemuron) Confirm Administered Dose 50 mg .ROUTE .STK-MED ONE Stop: 10/20/18 21:19 Succinylcholine Chloride (Succinylcholine In Ns Pf) Confirm Administered Dose 100 mg .ROUTE .STK-MED ONE Stop: 10/20/18 21:19 - Problem List Review Problem List Initiated/Reviewed/Updated: Yes - My Orders Last 24 Hours: Active Orders 24 hr Category Date Time Status Patient Status [ADT] Routine ADT 10/20/18 23:13 Active Ambulate [RC] ASDIRECTED Care 10/20/18 23:18 Active Antiembolic Devices [RC] PER UNIT ROUTINE Care 10/20/18 23:19 Active Cooling Warming Measures [RC] ASDIRECTED Care 10/20/18 22:17 Active Notify Provider [RC] ASDIRECTED Care 10/20/18 22:17 Active Oxygen Therapy [RC] ASDIRECTED Care 10/20/18 22:17 Active Pulse Oximetry [RC] ASDIRECTED Care 10/20/18 22:17 Active RT Aerosol Therapy [RC] ASDIRECTED Care 10/20/18 23:32 Active Turn, Cough, Deep Breathe [RC] .PRN Care 10/20/18 23:18 Active Verify Patient Consent Obtain [RC] ASDIRECTED Care 10/20/18 20:58 Active Clear Liquid Diet [DIET] Diet 10/21/18 Breakfast Active Abdomen Pelvis wo Cont [CT] Stat Exams 10/20/18 19:47 Taken Acetaminophen/HYDROcodone [Eureka 325-5 MG] Med 10/20/18 23:17 Active 1 tab PO Q6H PRN Albuterol [Proventil Neb Soln] Med 10/20/18 23:32 Active 2.5 mg NEB Q6HR PRN HYDROmorphone [Dilaudid] Med 10/20/18 23:16 Active 1 mg IVPUSH Q1H PRN Ketorolac [Toradol] Med 10/21/18 03:30 Active 30 mg IVPUSH Q6H PRN Lactated Ringers [Ringers, Lactated] 1,000 ml Med 10/20/18 23:30 Active IV ASDIRECTED cefOXitin [Mefoxin in Dextrose,Iso-Osm 2 GM/50 ML] 2 gm Med 10/21/18 03:00 Active Premix Bag 1 bag IV Q6H metroNIDAZOLE/Normal Saline [Flagyl 500 MG in NS 100 ML Med 10/21/18 05:00 Active ] 500 mg Premix Bag 1 bag IV Q8H SCD [Sequential Compression Device] [OM.PC] Routine Oth 10/20/18 23:19 Ordered Schedule Procedure [COMM] Stat Oth 10/20/18 20:49 Ordered Code Status [Resuscitation Status] Routine Resus Stat 10/21/18 01:14 Ordered Medication Orders Hydrocodone Bitart/Acetaminophen ([place] 325-5 Mg) 1 tab PO Q6H PRN PRN Reason: Pain Last Admin: 10/21/18 08:25 Dose: 1 tab Albuterol (Proventil Neb Soln) 2.5 mg NEB Q6HR PRN PRN Reason: Cough Hydromorphone HCl (Dilaudid) 1 mg IVPUSH Q1H PRN PRN Reason: Pain Cefoxitin Sodium 2 gm/ Premix 50 mls @ 100 mls/hr IV Q6H [facility] Last Admin: 10/21/18 08:30 Dose: 100 mls/hr Infusion: 10/21/18 03:23 Dose: 100 mls/hr Admin: 10/21/18 02:53 Dose: 100 mls/hr Lactated Ringer's (Ringers, Lactated) 1,000 mls @ 100 mls/hr IV ASDIRECTED [facility] Last Admin: 10/21/18 01:36 Dose: 100 mls/hr Metronidazole 500 mg/ Premix 100 mls @ 100 mls/hr IV Q8H [facility] Last Admin: 10/21/18 12:29 Dose: 100 mls/hr Infusion: 10/21/18 05:24 Dose: 100 mls/hr Admin: 10/21/18 04:24 Dose: 100 mls/hr Ketorolac Tromethamine (Toradol) 30 mg IVPUSH Q6H PRN PRN Reason: Pain Stop: 10/25/18 03:31 - Plan Plan (Free Text/Narrative):: discharge dictated INDIGO
--- NOTE | 2018-10-21 15:55 | DISCH ---
ADMISSION DATE: 10/20/2018 DISCHARGE DATE: 10/21/2018 HISTORY OF PRESENT ILLNESS: This is a 28-year-old who developed abdominal pain in the right lower quadrant yesterday about noon, came in to the emergency room where he was worked up by emergency room physician with CT scan showing acute appendicitis. His white count was 15,000. He was suffering from poor appetite and extreme pain in the right lower quadrant. PHYSICAL EXAMINATION: GENERAL: At the time of admission revealed the patient was alert and cooperative. EYES, EARS, NOSE, AND THROAT: Unremarkable. NECK: Supple. LUNGS: Clear. HEART: Tones regular rate. ABDOMEN: Showed exquisite tenderness in the right lower quadrant. HOSPITAL COURSE: The patient was seen in the emergency room, antibiotics were started, and brought to the operating room where a laparoscopic appendectomy was performed. Because of the extensive reaction around the appendix, he was retained in the hospital for IV antibiotics. His temperature remained afebrile. He was up and walking, had minimal discomfort. Good appetite. He felt that he had reached maximum hospital benefit and was discharged for followup in the clinic. He will be discharged on Flagyl 500 mg t.i.d. for 4 days and Vicodin 5/325 one p.o. q.i.d. p.r.n. pain. Asked not to work and see me in a week. CONDITION ON DISCHARGE: Improved. DISCHARGE DIAGNOSIS: Acute appendicitis, status post laparoscopic appendectomy. FINAL DIAGNOSIS: DISCHARGE MEDICATIONS: DIET: ACTIVITY: FOLLOW-UP: LENA /[id number]
--- NOTE | 2018-10-21 16:58 | PCM48HPAN ---
Post Anesthesia Note - EVALUATION WITHIN 48HRS OF ANESTHETIC Vital Signs in Normal Range: Yes Patient Participated in Evaluation: Yes Respiratory Function Stable: Yes Airway Patent: Yes Cardiovascular Function Stable: Yes Hydration Status Stable: Yes Pain Control Satisfactory: Yes Nausea and Vomiting Control Satisfactory: Yes Mental Status Recovered: Yes
--- NOTE | 2018-10-23 09:13 | CT ---
CT abdomen and pelvis Technique: Multiple axial sections were obtained from above the dome of the diaphragm inferiorly through the pubic symphysis. Intravenous and oral contrast was not utilized. Comparison: No prior abdominal imaging. Findings: Appendix is prominent in size with surrounding inflammatory change compatible with appendicitis. No abscess seen at this time. Visualized lung bases show nothing acute. Noncontrast appearance of the liver and spleen appears within normal limits. Adrenal glands show no nodule. Gallbladder contains no calcified gallstones. Kidneys showed no abnormal calcifications or hydronephrosis. Pancreas appears within normal limits. Aorta shows no aneurysm. No retroperitoneal adenopathy or mesenteric abnormalities are seen. No pelvic mass or adenopathy is seen. No free fluid is identified. Bone window settings were reviewed which appear within normal limits for the patient's age. Impression: 1. Findings compatible with appendicitis. 2. No additional abnormality identified on noncontrast CT study of the abdomen and pelvis. Diagnostic code #5 I agree with preliminary report from [facility], finalized on 10/20/18, 9:26 PM Central Time
--- NOTE | 2018-10-23 11:49 | HP ---
DATE OF ADMISSION: 10/20/2018 HISTORY OF PRESENT ILLNESS: This is a 28-year-old who comes in first to the walk-in clinic and then to the emergency room with pain in the right lower quadrant, quite exquisite. It began about noontime yesterday and gradually increased in intensity where it is quite tender to touch and movement. White count was 15,[address] scan showed localized appendicitis with localized peritonitis without any evidence of perforation or abscess. PAST MEDICAL HISTORY: Good health. ALLERGIES: None except for almonds. CURRENT MEDICATIONS: None. REVIEW OF SYSTEMS: No chest pain, shortness of breath, cough, hoarseness, wheezing, fainting, weakness, numbness, or convulsions. Does have a loss of appetite, but no nausea and vomiting. FAMILY HISTORY: Negative. His granddad had appendicitis. PHYSICAL EXAMINATION: VITAL SIGNS: Shows a temperature of 97, pulse 79, respirations 20, and blood pressure 153/92. EYES: Sclerae white. Extraocular muscle motion normal. Oral cavity, healthy mucous membrane with mouth and tongue. NECK: Supple. No nodes. No thyromegaly. Trachea midline. LUNGS: Clear. No rales, rhonchi, fremitus, dullness. HEART: Tones regular rate. No S3, S4, jugular venous distention. ABDOMEN: Shows tenderness, guarding in the right lower quadrant. EXTREMITIES: Upper and lower extremities; no angulation deformities. SKIN: Warm and dry. NEUROLOGIC: Normal. PSYCHIATRIC: Normal. ASSESSMENT: Acute appendicitis. PLAN: For laparoscopic appendectomy. Discussed this with the patient risks and complications. He understands and consents to surgery. MMODAL /[id number]
== END 2018-10-21 13:52 | disposition home or self-care (01) ==
LOC: JD.ED 18:06 → JD.SDS 20:55 → JD.MS 23:19
PROVIDERS: ADMIT Surgery; ATTEND Surgery
DX: K35.31 Acute appendicitis with localized peritonitis and gangrene, without perforation (principal); Z91.018 Allergy to other foods
CPT/HCPCS: 36415; 44970; 74176; 80053; 85025; 86140; 94640; 96361; 96365; 96367; 99285; A9270; G0378; J0330; J0694; J1100; J1170; J1885; J2001; J2250; J2405; J2704; J2710; J3010; J3490; J7040; J7120; 00840

== ENCOUNTER 2023-12-29 08:12 | Emergency (ER) | payer BC ==
[2023-12-29 08:36] LABS: BASOPHILS PERCENT AUTO 0.3 % (0.0-1.0); EOSINOPHILS PERCENT AUTO 0.3 % (0.0-6.0); HEMATOCRIT 43.3 % (42.0-52.0); HEMOGLOBIN 14.8 gm/dl (14.0-18.0); IMMATURE GRAN ABSOLUTE AUTO 0.03 K/mm3 (0.00-0.05); IMMATURE GRAN PERCENT AUTO 0.3 % (0.0-0.4); LYMPHOCYTES ABSOLUTE AUTO 2.2 K/mm3 (1.0-4.8); LYMPHOCYTES PERCENT AUTO 18.1 % (24.0-44.0); MEAN CORPUSCULAR HEMOGLOBIN 28.3 pg (28.0-32.0); MEAN CORPUSCULAR HGB CONC 34.2 g/dl (32.0-36.0); MEAN CORPUSCULAR VOLUME 82.8 fl (83.0-99.0); MEAN PLATELET VOLUME 9.5 fl (9.4-12.4); MONOCYTES ABSOLUTE AUTO 0.6 K/mm3 (0.0-0.8); MONOCYTES PERCENT AUTO 4.8 % (0.0-8.0); NEUTROPHILS PERCENT AUTO 76.2 % (41.0-71.0); PLATELET COUNT,PLT 286 K/mm3 (150-400); RED BLOOD CELL COUNT 5.23 M/mm3 (4.52-5.90); WHITE BLOOD CELL COUNT,WBC 11.85 K/mm3 (3.9-11.3)
[2023-12-29] MEDS: Pantoprazole 40 MG Vial IVPUSH ONE (08:40)
[2023-12-29] MEDS: Aspirin 81 MG Tab.Chew PO ONE (08:40)
[2023-12-29 09:00] LABS: INR 1.07; PROTHROMBIN TIME 11.4 SECONDS (9.7-12.0)
[2023-12-29 09:05] LABS: ALANINE AMINOTRANSFERASE,ALT 37 U/L (16-63); ALBUMIN 4.4 g/dl (3.4-5.0); ALKALINE PHOSPHATASE 83 U/L (46-116); ANION GAP 15.3 (5-15); ASPARTATE AMNIOTRANSFERASE,AST 16 U/L (15-37); BILIRUBIN TOTAL 0.5 mg/dL (0.2-1.0); BLOOD UREA NITROGEN,BUN 14 mg/dL (7-18); CALCIUM 9.7 mg/dL (8.5-10.1); CARBON DIOXIDE,CO2 26 mEq/L (21-32); CHLORIDE,CL 102 mEq/L (98-107); EST CRCL DRUG DOSING (CG) 126.58 mL/min; ESTIMATED GFR 101 mL/min (>60); GLUCOSE RANDOM 124 mg/dL (70-99); LIPASE 43 U/L (16-77); POTASSIUM,K 3.3 mEq/L (3.5-5.1); PROTEIN TOTAL,TP 8.9 g/dl (6.4-8.2); SODIUM,NA 140 mEq/L (136-145)
[2023-12-29 09:11] LABS: TROPONIN I HIGH SENSITIVITY < 4 pg/mL (<=76)
== END 2023-12-29 11:58 | disposition home or self-care (01) ==
LOC: JD.ED 08:12
DX: K21.9 Gastro-esophageal reflux disease without esophagitis (principal); E11.9 Type 2 diabetes mellitus without complications; Z91.018 Allergy to other foods; Z79.899 Other long term (current) drug therapy
CPT/HCPCS: 36415; 71045; 80053; 83690; 84484; 85025; 85610; 93005; 96374; 99285; A9270; C9113

== ENCOUNTER 2025-07-18 06:55 | Day surgery (SDC) | payer BC ==
[~2025-07-18 06:55] MED LIST: Sodium Chloride 0.9% 10 ML Syringe FLUSH PRN; Sodium Chloride 0.9% 10 ML Syringe FLUSH SCH
[2025-07-18] MEDS: Lactated Ringers 1,000 ML IV SCH (07:35)
[2025-07-18] MEDS ORDERED: Propofol 200 MG/20 ML SDV ONE (08:45)
[2025-07-18] MEDS ORDERED: propofoL 500 MG/50 ML 50 ML ONE (08:54)
== END 2025-07-18 09:50 | disposition home or self-care (01) ==
LOC: JD.SDS 06:55
PROVIDERS: ATTEND Surgery
DX: K21.00 Gastro-esophageal reflux disease with esophagitis, without bleeding (principal); K44.9 Diaphragmatic hernia without obstruction or gangrene; I10 Essential (primary) hypertension; E11.9 Type 2 diabetes mellitus without complications; E78.5 Hyperlipidemia, unspecified; Z88.8 Allergy status to other drugs, medicaments and biological substances; Z79.899 Other long term (current) drug therapy
CPT/HCPCS: 43239; C9777; J2003; J2704; J7120; 00731